=== PATIENT | male | born 1985 | race Caucasian/White ===

== ENCOUNTER 2025-01-18 15:27 | Emergency (ER) | payer MEDICAID ==
[~2025-01-18] VITALS: Ht 172.7 cm; Wt 65.0 kg
[2025-01-18] MEDS: IPRATROPIUM BROMIDE (0.02%) 0.5MG/2.5ML NEB HHN ONE (16:44)
[2025-01-18] MEDS: ALBUTEROL (0.083%) 2.5MG/3ML NEB HHN ONE (16:47)
[2025-01-18 16:51] VITALS: PULSE 94; RESP 20; O2SAT 98
[2025-01-18] MEDS: DEXAMETHASONE 4MG TABLET PO ONE (17:20)
[2025-01-18] MEDS: ALBUTEROL (0.083%) 2.5MG/3ML NEB HHN SCH (18:07)
[2025-01-18] MEDS: IPRATROPIUM BROMIDE (0.02%) 0.5MG/2.5ML NEB HHN SCH (18:07)
[2025-01-18 18:13] VITALS: PULSE 91; RESP 18; O2SAT 99
[2025-01-18] MEDS ORDERED: MONT-46 MT (18:54)
[2025-01-18] MEDS ORDERED: ALBU18HF2 IH (18:54)
[2025-01-18 18:55] VITALS: BP 137/82; PULSE 96; RESP 18; TEMP 36.5; O2SAT 99
== END 2025-01-18 19:02 | disposition home or self-care (01) ==
LOC: ER 15:27
DX: J45.901 Unspecified asthma with (acute) exacerbation (principal); Z79.899 Other long term (current) drug therapy
CPT/HCPCS: 71045; 94644; 99285; J8540; Z7610 ×3; 94640; 94664